=== PATIENT | female | born 1980 | race African-American/Black ===

== ENCOUNTER 2016-06-08 08:22 | Emergency (ER) | payer MEDICAID ==
--- NOTE | 2016-06-08 09:48 | ER Document Report ---
ED General - General Chief Complaint: Breathing Difficulty Stated Complaint: DIFFICULTY BREATHING Notes: Patient's chief complaint is that "my whole body aches". Patient says that she' s had flu symptoms with cough and congestion for the past week. Since last night and this morning, she has worsening headache, backache, chest pain, abdominal pain. "Everything" hurts, even the blanket touching her skin. Patient has been having diarrhea yesterday, but not today. Has not had any nausea or vomiting. No UTI symptoms. Denies sore throat. Cough is slightly productive. Patient does not have periods because she has an IUD. Only medication is albuterol inhaler for asthma. Says she used to take Percocet for knee pain because of knee "issues". Works taking care of elderly patients. TRAVEL OUTSIDE OF THE [place] IN LAST 30 DAYS: No - Related Data Allergies/Adverse Reactions: No Known Allergies Allergy (Verified 06/08/16 08:25) Past Medical History - Social History Smoking Status: Never Smoker Chew tobacco use (# tins/day): No Frequency of alcohol use: None Drug Abuse: None Family History: Reviewed & Not Pertinent Patient has suicidal ideation: No Patient has homicidal ideation: No Pulmonary Medical History: Reports: Hx Asthma Neurological Medical History: Reports: Hx Migraine Past Surgical History: Reports: Hx Orthopedic Surgery - LEFT KNEE SURGERY - Immunizations Hx Diphtheria, Pertussis, Tetanus Vaccination: Yes - 2012 Hx Pneumococcal Vaccination: 12/17/12 Review of Systems - Review of Systems Constitutional: Fever - Says she's had a fever, but has not taken temp. Feels as if she is "freezing". EENT: denies: Sinus discharge, Throat pain, Difficulty swallowing, Throat swelling Cardiovascular: Chest pain Respiratory: Cough, Short of breath, Wheezing Gastrointestinal: Abdominal pain, Diarrhea - Yesterday only. denies: Vomiting Musculoskeletal: See HPI Skin: denies: Rash Physical Exam - Vital signs Vitals: Temp Pulse Resp BP Pulse Ox 98.7 F 107 H 20 134/100 H 99 06/08/16 08:27 06/08/16 08:27 06/08/16 08:27 06/08/16 08:27 06/08/16 08:27 Interpretation: Tachycardic - Very slight - Notes Notes: PHYSICAL EXAMINATION: GENERAL: Well-appearing, in no acute distress. Vital signs are all essentially normal. ENT: oropharynx clear without exudates. Moist mucous membranes. NECK: Normal range of motion, supple. LUNGS: Breath sounds a few scattered wheezes, but good air movement, and equal breath sounds bilaterally. Patient complained that it was very painful for me to put the stethoscope on her chest to listen to her lung sounds. HEART: Regular rate and rhythm without murmurs. Heart rate 80 at bedside by me. ABDOMEN: Soft, nontender. No guarding or rebound. BACK: No tenderness throughout entire back. EXTREMITIES: Normal range of motion without pain. Negative Homans bilaterally. No swelling of either lower extremity. SKIN: Warm, dry, no rashes. Course - Vital Signs Vital signs: Temp Pulse Resp BP Pulse Ox 100.0 F 86 16 140/88 H 97 06/08/16 09:47 06/08/16 09:47 06/08/16 09:47 06/08/16 09:47 06/08/16 09:47 - Diagnostic Test Radiology results interpreted by me: 06/08/16 09:48 Chest x-ray is normal. Discharge - Discharge Clinical Impression: Flu URI (upper respiratory infection) Qualifiers: URI type: unspecified viral URI Qualified Code(s): J06.9 - Acute upper respiratory infection, unspecified Condition: Stable Disposition: HOME, SELF-CARE Additional Instructions: UPPER RESPIRATORY ILLNESS: You have a viral infection of the respiratory passages -- a "cold." This common infection causes nasal congestion, drainage, and often sore throat and cough. It is highly contagious. The disease usually lasts about 10 to 14 days. There is no "cure" for the viral infection -- it must run its course. If there is a complication, such as bacterial infection in the nose, sinuses, middle ear, or bronchial tubes, antibiotics may be required. The antibiotics won't affect the virus. Drink plenty of fluids. A humidifier may help. An expectorant medication or decongestant may make you more comfortable. Use acetaminophen or ibuprofen for fever or aches. See the doctor if fever persists over two days, if there is any significant worsening of your symptoms, or if you simply fail to improve as expected. It is very likely that you have the flu and symptoms can last for up to couple of weeks. There is no treatment for the flu at this stage. Your chest x-ray was read as normal by the radiologist. BRONCHOSPASM: You have tightness in the bronchial tubes, called bronchospasm. This often occurs with bronchial infections. Allergies, inhaled chemicals, and polluted or cold air can also provoke bronchospasm. It's more likely in patients with asthma in the family. Emergency treatment of bronchospasm may include adrenaline shots or bronchodilator aerosol. You may feel lightheaded and have a rapid pulse for an hour or two. Rest and get plenty of fluids. At home, we'll treat you with a bronchodilator inhaler. Antibiotics and corticosteroids may be required for some patients. Until you recover, avoid chemical fumes, dusts, pollens, and exercising in very cold or dry air. If you smoke, stop now!! If you develop a fever, increased wheezing, chest pain, or severe shortness of breath, you should contact the doctor immediately. Myalagia (Muscle Pain) Myalgia is pain in the muscles. We use the word myalgia to describe muscle pain where there's no history of injury, no known muscle disease, and the muscles are normal to examination. Myalgias can be a symptom of an acute illness , such as influenza, hepatitis, or any viral illness, especially with fever. Sometimes the muscle pain comes before any other symptoms. Myalgia can also be an early symptom of inflammatory muscle disease, such as lupus. If myalgia is accompanied by an acute illness that explains the muscle pain , then no further testing needs to be done. When there's no clear reason for the pain, tests may be done to see if there's an inflammatory or other disease of the muscles. The usual treatment for myalgias is anti-inflammatory medication, such as ibuprofen. Muscle aches may be soothed with a heating pad or hot compress. If muscles remain painful for more than a few days, you'll need testing and followup. Return if a muscle becomes swollen, red, or severely painful. INHALED BRONCHODILATORS: You have received a treatment of and/or prescription for an inhaled bronchodilator -- a medication which stimulates the airways in the lung to dilate. This improves the flow of air in asthma, bronchitis, and emphysema. These medicines have some similarity to adrenaline, and can cause similar side effects: shakiness, racing heart, and a sense of nervousness. These side effects decrease with time. Contact your doctor if these side effects are severe. Do not over-use the medicine. Too-frequent use of the inhaler may make it ineffective. Call your doctor if the inhaler is not controlling your symptoms at the prescribed doses. USE OF ACETAMINOPHEN (Tylenol): Acetaminophen may be taken for pain relief or fever control. It's much safer than aspirin, offering a wider range of "safe" dosages. It is safe during . Some brand names are Tylenol, Panadol, Datril, Anacin 3, Tempra, and Liquiprin. Acetaminophen can be repeated every four hours. The following are maximum recommended dosages: >89 pounds or adults 650 mg to 900 mg Acetaminophen can be repeated every four hours. Maximum dose not to exceed 4000 mg a day. Oral Narcotic Medication You have been given a prescription for pain control. This medication is a narcotic. It's best taken with food, as nausea can result if taken on an empty stomach. Don't operate machinery or drive within six hours of taking this medication. Do not combine this medicine with alcohol, or with any medication which can cause sedation (such as cold tablets or sleeping pills) unless you get permission from the physician. Narcotics tend to cause constipation. If possible, drink plenty of fluids and eat a diet high in fiber and fruits. FOLLOW-UP CARE: If you have been referred to a physician for follow-up care, call the physician s office for an appointment as you were instructed or within the next two days. If you experience worsening or a significant change in your symptoms, notify the physician immediately or return to the Emergency Department at any time for re-evaluation. Prescriptions: Oxycodone HCl/Acetaminophen [Percocet 5-325 mg Tablet] 1 - 2 tab PO Q4H PRN #15 tablet PRN Reason: Forms: Return to Work
[2016-06-08 09:49] VITALS: BP 140/88
== END 2016-06-08 10:09 | disposition home or self-care (01) ==
LOC: ER 08:22
DX: J11.1 Influenza due to unidentified influenza virus with other respiratory manifestations (principal); R51 Headache; M54.9 Dorsalgia, unspecified; R07.9 Chest pain, unspecified; R10.9 Unspecified abdominal pain; R05 Cough; J45.909 Unspecified asthma, uncomplicated; Z79.899 Other long term (current) drug therapy; Z97.5 Presence of (intrauterine) contraceptive device
CPT/HCPCS: 71020; 99284

== ENCOUNTER → 2018-04-01 | Outpatient (CLI) | payer MEDICAID ==
--- NOTE | 2018-04-01 16:58 | RADIOLOGY REPORT (SQ) ---
EXAM DESCRIPTION: U/S NON OB PEL TV W/DOPPLER COMPLETED DATE/TIME: 04/01/2018 4:47 pm REASON FOR STUDY: T83.32XA DISPLACEMENT OF INTRAUTERINE CONTRACEPTIVE DEVICE, INIT T83.32XA DISPLAC EMENT OF INTRAUTERINE CONTRACEPTIVE DEVICE, COMPARISON: 01/11/2012 TECHNIQUE: Dynamic and static grayscale images acquired of the pelvis via transvaginal approach and recorded on PACS. Additional selected color Doppler and spectral images recorded. LIMITATIONS: None. FINDINGS: UTERUS: Contour normal. No mass. ENDOMETRIAL STRIPE: IUD within the endometrial cavity. CERVIX: A 3.2 cm Nabothian cyst. RIGHT OVARY AND DOPPLER: Not visualized due to overlying bowel gas. LEFT OVARY AND DOPPLER: Normal size. A 2.0 x 2.2 x 2.4 cm well-circumscribed predominantly solid les ion within the left ovary. An eccentrically located small cystic area is identified. Normal arteria l vascular flow without evidence for torsion. FREE FLUID: None noted. OTHER: No other significant finding. MEASUREMENTS: UTERUS: 10.5 x 4.8 x 5.7 cm ENDOMETRIAL STRIPE: 1.7 mm RIGHT OVARY: Not visualized LEFT OVARY: 5.9 X 2.4 X 2.7 cm IMPRESSION: 1. The left ovary is not visualized due to overlying bowel gas. 2. A well-circumscribed predominantly solid appearing mass is suggested in the left ovary with an ecc entrically located small cystic area. Correlation suggested. 3. Nabothian cyst within the cervix region. 4. IUD within the endometrial cavity. TECHNICAL DOCUMENTATION: JOB ID: [id number]- All Rights Reserved Rev-07/27 Reading location - IP/workstation name: [email or web address]
== END ==
LOC: RAD 16:28
PROVIDERS: ATTEND Family Medicine
DX: T83.32XA Displacement of intrauterine contraceptive device, initial encounter (principal); N88.8 Other specified noninflammatory disorders of cervix uteri; N83.202 Unspecified ovarian cyst, left side
CPT/HCPCS: 76830; 93976

== ENCOUNTER → 2019-09-24 | Outpatient (CLI) | payer MEDICAID ==
--- NOTE | 2019-09-24 13:09 | RADIOLOGY REPORT (SQ) ---
EXAM DESCRIPTION: FINGER LEFT IMAGES COMPLETED DATE/TIME: 09/24/2019 11:27 am REASON FOR STUDY: S69.92XA UNSP INJURY OF LEFT WRIST, HAND AND FINGER(S), INIT ENCNTR S69.92XA UNSP INJURY OF LEFT WRIST, HAND AND FINGER(S), INIT COMPARISON: None. NUMBER OF VIEWS: Three views. TECHNIQUE: AP, lateral, and oblique images acquired of the left thumb. LIMITATIONS: None. FINDINGS: MINERALIZATION: Normal. BONES: No acute fracture or dislocation. No worrisome bone lesions. SOFT TISSUES: No soft tissue swelling. No foreign body. OTHER: No other significant finding. IMPRESSION: NO RADIOGRAPHIC EVIDENCE OF ACUTE INJURY. TECHNICAL DOCUMENTATION: JOB ID: [id number] [employer]- All Rights Reserved Reading location - IP/workstation name: [email or web address]
== END ==
LOC: RAD 11:15
PROVIDERS: ATTEND Family Medicine
DX: S69.92XA Unspecified injury of left wrist, hand and finger(s), initial encounter (principal); X58.XXXA Exposure to other specified factors, initial encounter